=== PATIENT | female | born 1945 | race African-American/Black ===

== ENCOUNTER 2016-07-10 09:19 | Day surgery (SDC) | payer OTHER ==
--- NOTE | ~2016-07-10 | EGD ---
EGD REPORT [facility] [address] [place] [address] NAME: BESSIE COSBY : [birth year] STATUS : REG [facility]#: [id number] AGE: 70 ADM/REG DATE : 07/10/16 MR#: [id number] REPORT SERV DATE: 07/10/16 DICTATED BY: MOI KRISHNA DATE: 07/10/16 REPORT STATUS : Draft TRANSCRIBED BY: [facility] DATE: 07/10/16 [facility] Patient Name: Bessie Cosby Date of : 1945 Attending MD: MOI KRISHNA MD Procedure Date No Time: 07/10/2016 Procedure: Colonoscopy Indications: Surveillance: History of piecemeal removal adenoma on last colonoscopy (< 1 yr) Referring MD: Graeme DAVID MD Medicines: See the Anesthesia note for documentation of the administered medications Complications: No immediate complications. Procedure: Pre-Anesthesia Assessment: - ASA Grade Assessment: II - A patient with mild systemic disease. After I obtained informed consent, the scope was passed under direct vision. Throughout the procedure, the patient's blood pressure, pulse, and oxygen saturations were monitored continuously. The [facility] [id number] was introduced through the anus and advanced to the terminal ileum, with identification of the appendiceal orifice and IC valve. The colonoscopy was performed without difficulty. The patient tolerated the procedure well. The quality of the bowel preparation was adequate. Findings: The perianal and digital rectal examinations were normal. Internal hemorrhoids were found during retroflexion and were small. A sessile polyp was found in the ascending colon. The polyp was small in size. The polyp was removed with a cold biopsy forceps. Resection and retrieval were complete. Three sessile polyps were found in the descending colon. The polyps were small in size. These polyps were removed with a cold biopsy forceps. Resection and retrieval were complete. Impression: - Internal hemorrhoids. - One small polyp in the ascending colon. Resected and retrieved. - Three small polyps in the descending colon. Resected and retrieved. Recommendation: - Patient has a contact number available for emergencies. The signs and symptoms of potential delayed complications were discussed with the patient. Return to EGD REPORT [address] [address] NAME: BESSIE COSBY : [birth year] STATUS : REG [facility] PAT#: [id number] AGE: 70 ADM/REG DATE : 07/10/16 MR#: [id number] REPORT SERV DATE: 07/10/16 DICTATED BY: MOI KRISHNA DATE: 07/10/16 REPORT STATUS : Draft TRANSCRIBED BY: [employer] DATE: 07/10/16 normal activities tomorrow. Written discharge instructions were provided to the patient. - Regular diet. - Continue present medications. - Repeat colonoscopy in 3 years for surveillance. - FOR YOUR BIOPSY RESULTS: Please go to [email or web address] and register to receive your results via the portal. Your biopsy results will be posted there in about 7 to 10 days. IF you do not see result in 10 days, call office. Procedure Code(s): --- Professional --- 60125, Colonoscopy, flexible, proximal to splenic flexure; with biopsy, single or multiple Diagnosis Code(s): --- Professional --- K64.8, Other hemorrhoids D12.4, Benign neoplasm of descending colon D12.2, Benign neoplasm of ascending colon Z86.010, Personal history of colonic polyps CPT copyright 2013 [employer]. All rights reserved. The codes documented in this report are preliminary and upon powder worker tnt review may be revised to meet current compliance requirements. Moi Krishna MD MOI KRISHNA MD 07/10/2016 10:54 AM This report has been signed electronically. Number of Addenda: 0 Note Initiated On: 07/10/2016 10:31 AM Scope Withdrawal Time 0 hours 10 minutes 39 seconds [id number] [id number]
[~2016-07-10 09:19] MED LIST: ALLEGRA180 PO; CYANO1000T PO; DYAZIDE1 CAP PO; ESTRACE0.5 MG PO; HEMOCYTE324 MG PO; HYZAAR 50/12.51 TAB PO; LORTAB 5 PO; MOBIC7.5 PO; MULTIPLE VIT PO; NORCO1 TA1 PO; PREM45 PO; REST15 PO; RESTORIL30 MG PO; SYSTANE OP; VITAMIN D1000 UNI1 PO; VITAMIN D31000 UNIT PO; VOLT75 PO; X5 PO; XALAT OPH
== END 2016-07-10 23:59 | disposition home or self-care (01) ==
LOC: DMU 09:19
PROVIDERS: Internal Medicine Gastroenterology
PROC: 0DBM8ZZ Excision of Descending Colon, Via Natural or Artificial Opening Endoscopic (ICD-10-PCS; 2016-07-10)
PROC: 0DBK8ZZ Excision of Ascending Colon, Via Natural or Artificial Opening Endoscopic (ICD-10-PCS; principal; 2016-07-10 11:30)
DX: Z12.11 Encounter for screening for malignant neoplasm of colon (principal); D12.2 Benign neoplasm of ascending colon; K63.5 Polyp of colon; I10 Essential (primary) hypertension; H91.90 Unspecified hearing loss, unspecified ear; F17.210 Nicotine dependence, cigarettes, uncomplicated; F41.9 Anxiety disorder, unspecified; M19.90 Unspecified osteoarthritis, unspecified site; Z86.010 Personal history of colon polyps; Z90.710 Acquired absence of both cervix and uterus; Z96.641 Presence of right artificial hip joint; Z98.41 Cataract extraction status, right eye; Z98.42 Cataract extraction status, left eye; Z96.1 Presence of intraocular lens; Z97.2 Presence of dental prosthetic device (complete) (partial); Z98.51 Tubal ligation status; Z79.899 Other long term (current) drug therapy; Z79.891 Long term (current) use of opiate analgesic
CPT/HCPCS: 88305